=== PATIENT | male | born 1955 | race Caucasian/White ===

== ENCOUNTER 2021-05-18 10:37 | Outpatient (CLI) | payer MEDICARE | END 2021-05-18 10:38 | disposition home or self-care (01) | LOC: CSHWCC 10:37 | PROVIDERS: ATTEND Nurse Practitioner Family | DX: T81.89XD Other complications of procedures, not elsewhere classified, subsequent encounter (principal); I87.2 Venous insufficiency (chronic) (peripheral); E11.622 Type 2 diabetes mellitus with other skin ulcer; E11.319 Type 2 diabetes mellitus with unspecified diabetic retinopathy without macular edema; E11.65 Type 2 diabetes mellitus with hyperglycemia; L97.926 Non-pressure chronic ulcer of unspecified part of left lower leg with bone involvement without evidence of necrosis; I11.9 Hypertensive heart disease without heart failure; E78.5 Hyperlipidemia, unspecified; G90.09 Other idiopathic peripheral autonomic neuropathy; Z89.512 Acquired absence of left leg below knee | CPT/HCPCS: 97605; 99203; G0463 ==

== ENCOUNTER 2021-08-21 18:07 | Inpatient (IN) | payer MEDICARE ==
[2021-08-21 18:22] VITALS: BMI 32.8
[2021-08-21] MEDS ORDERED: Melatonin 3 MG TAB PO PRN (21:41)
[2021-08-21] MEDS ORDERED: Ondansetron PF 4 MG/2 ML Vial IVP PRN (21:41)
[2021-08-21] MEDS ORDERED: HYDROcodone/Acetaminophen 5/325 mg Tablet PO PRN (21:41)
[2021-08-21] MEDS ORDERED: Milk Of Magnesia 30 ML UDCUP PO PRN (21:41)
[2021-08-21] MEDS ORDERED: Ondansetron ODT 4 MG TAB PO PRN (21:41)
[2021-08-21] MEDS ORDERED: Temazepam 15 MG CAP PO PRN (21:56)
[2021-08-21] MEDS ORDERED: Piperacillin/Tazobactam 3.375 GM in Sodium Chloride 0.9% 100 ML IVPB SCH (22:00)
[2021-08-21] MEDS ORDERED: Vancomycin HCl 1 GM in Sodium Chloride 0.9% 250 ML 250 ML IVPB SCH (22:00)
[2021-08-21] MEDS: Sodium Chloride 0.9% 1,000 ML IV SCH (22:24)
[2021-08-21] MEDS: Lantus 1000 UNITS/10 ML VIAL SC SCH (22:51)
[2021-08-22 05:35] LABS: #Eosinphils 0.2 10x3/uL (0.0-0.5); #Monocytes 1.1 10x3/uL (0.0-1.1); %Basophils 0.4 % (0.0-2.0); %Lymphocytes 8.6 % (18.0-47.0); %Monocytes 10.3 % (0.0-10.0); %Neutrophils 78.5 % (40.0-75.0); Hemoglobin 12.5 g/dL (13.5-17.5); Mean Corpuscular HGB CONC 32.3 g/dL (32.0-36.0); Mean Corpuscular Hemoglobin 26.5 pg (27.0-33.0); Mean Corpuscular Volume 82.2 fl (81.2-95.1); Mean Platelet Volume 11.9 fl (7.4-10.4); Platelet Count 168 10x3/uL (150-450); RBC Distribution Width 13.3 % (11.5-14.5); Red Blood Cell (RBC) Count 4.71 10x6/uL (4.32-5.72); White Blood Cell (WBC) Count 10.2 10x3/uL (3.5-10.5)
[2021-08-22] MEDS ORDERED: Piperacillin/Tazobactam 3.375 GM in Sodium Chloride 0.9% 100 ML IVPB SCH (06:00)
[2021-08-22 06:01] LABS: Anion Gap 11 mmol/L (10-20); BUN (Urea Nitrogen) 25 mg/dL (8.4-25.7); Calc. Creatinine Clearance 75 mL/min (70-130); Calcium 9.2 mg/dL (7.8-10.44); Carbon Dioxide 28 mmol/L (23-31); Chloride 103 mmol/L (98-107); Glucose 268 mg/dL (80-115); Magnesium 1.9 mg/dL (1.6-2.6); Potassium 4.4 mmol/L (3.5-5.1); Sodium 138 mmol/L (136-145)
[2021-08-22] MEDS: HumaLOG 300 UNITS/3 ML VIAL SC SCH ×3 (08:42→17:37)
[2021-08-22] MEDS: Metoprolol Tartrate 50 MG TAB PO SCH ×2 (08:43→20:49)
[2021-08-22] MEDS: Losartan 25 MG TAB PO SCH (08:43)
[2021-08-22] MEDS: Furosemide 40 MG TAB PO SCH (08:43)
[2021-08-22] MEDS: Cefepime 2 GM in Sodium Chloride 0.9% 100 ML IVPB SCH ×2 (08:43→20:49)
[2021-08-22] MEDS ORDERED: Enoxaparin Sodium 40 MG/0.4 ML SYRINGE SC SCH ×2 (09:00→12:00)
[2021-08-22] MEDS ORDERED: Clopidogrel Bisulfate 75 MG TAB PO SCH (09:00)
[2021-08-22] MEDS ORDERED: Vancomycin 1.5 GRAM/300 ML BAG 1.5 GM in Premix Bag 1 BAG IVPB SCH (09:00)
[2021-08-22] MEDS ORDERED: Aspirin 81 mg Enteric Coated Tablet PO SCH ×2 (09:00→12:00)
[2021-08-22] MEDS ORDERED: VANCOMYCIN 1.25 GM/250 ML BAG 1.25 GM in Premix Bag 1 BAG IVPB SCH (11:00)
[2021-08-22 15:54] LABS: SARS-CoV-2 PCR by NAA Not Detected (NotDetected)
[2021-08-22] MEDS: Sodium Chloride 0.9% 1,000 ML IV SCH ×2 (17:37→19:45)
[2021-08-22] MEDS: Rosuvastatin 20 MG TAB PO SCH (20:50)
[2021-08-22] MEDS: Lantus 1000 UNITS/10 ML VIAL SC SCH (21:01)
[2021-08-22] MEDS ORDERED: Vancomycin HCl 1 GM in Sodium Chloride 0.9% 250 ML 250 ML IVPB SCH (23:00)
[2021-08-23] MEDS: Sodium Chloride 0.9% 1,000 ML IV SCH ×3 (00:18→15:59)
[2021-08-23 05:43] LABS: #Eosinphils 0.3 10x3/uL (0.0-0.5); #Monocytes 0.7 10x3/uL (0.0-1.1); #Neutrophils 4.9 10x3/uL (1.5-8.4); %Basophils 0.4 % (0.0-2.0); %Eosinophils 4.4 % (0.0-6.0); %Lymphocytes 15.4 % (18.0-47.0); %Monocytes 10.2 % (0.0-10.0); %Neutrophils 69.3 % (40.0-75.0); Hemoglobin 12.5 g/dL (13.5-17.5); Mean Corpuscular HGB CONC 30.9 g/dL (32.0-36.0); Mean Corpuscular Hemoglobin 25.9 pg (27.0-33.0); Mean Corpuscular Volume 83.9 fl (81.2-95.1); Mean Platelet Volume 12.1 fl (7.4-10.4); Platelet Count 173 10x3/uL (150-450); RBC Distribution Width 13.2 % (11.5-14.5); Red Blood Cell (RBC) Count 4.83 10x6/uL (4.32-5.72)
[2021-08-23 05:59] LABS: PTT 26.4 sec (22.0-33.0); Prothrombin Time 10.8 sec (9.5-12.1)
[2021-08-23 06:00] LABS: ALT (SGPT) 31 U/L (8-55); AST (SGOT) 31 U/L (5-34); Albumin 3.4 g/dL (3.4-4.8); Alkaline Phosphatase 78 U/L (40-110); Anion Gap 11 mmol/L (10-20); BUN (Urea Nitrogen) 24 mg/dL (8.4-25.7); Bilirubin, Total 0.3 mg/dL (0.2-1.2); CRP (Inflammatory) 5.25 mg/dL (= or < 0.5); Calc. Creatinine Clearance 82 mL/min (70-130); Calcium 9.1 mg/dL (7.8-10.44); Carbon Dioxide 27 mmol/L (23-31); Cardiac Risk 3.5 (Less than 4.5); Chloride 105 mmol/L (98-107); Cholesterol 92 mg/dl (< 200 Desired); Globulin 3.3 g/dL (2.4-3.5); Glucose 211 mg/dL (80-115); HDL Cholesterol 26 mg/dL (>60 Neg Risk); LDL Cholesterol, Calculated 55 mg/dL; Magnesium 1.8 mg/dL (1.6-2.6); Phosphorus 4.2 mg/dL (2.3-4.7); Potassium 4.4 mmol/L (3.5-5.1); Protein, Total 6.7 g/dL (5.8-8.1); Sodium 139 mmol/L (136-145); Triglycerides 56 mg/dL (Less than 150)
[2021-08-23] MEDS: HumaLOG 300 UNITS/3 ML VIAL SC SCH ×3 (08:36→16:04)
[2021-08-23] MEDS: Losartan 25 MG TAB PO SCH (09:07)
[2021-08-23] MEDS: Cefepime 2 GM in Sodium Chloride 0.9% 100 ML IVPB SCH ×2 (09:07→21:08)
[2021-08-23] MEDS: Furosemide 40 MG TAB PO SCH (09:08)
[2021-08-23] MEDS: Metoprolol Tartrate 50 MG TAB PO SCH ×2 (09:08→21:00)
[2021-08-23] MEDS ORDERED: Vancomycin HCl 1 GM in Sodium Chloride 0.9% 250 ML 250 ML IVPB SCH (11:00)
[2021-08-23 11:41] LABS: Hemoglobin A1c 8.7 % (4.0-6.0)
[2021-08-23] MEDS: Vancomycin HCl 1 GM in Sodium Chloride 0.9% 250 ML 250 ML IVPB SCH (16:04)
[2021-08-23] MEDS: Rosuvastatin 20 MG TAB PO SCH (21:00)
[2021-08-23] MEDS: Lantus 1000 UNITS/10 ML VIAL SC SCH (21:01)
[2021-08-23] MEDS: Temazepam 15 MG CAP PO SCH (21:01)
[2021-08-24] MEDS: Sodium Chloride 0.9% 1,000 ML IV SCH ×3 (03:09→16:31)
[2021-08-24 05:56] LABS: ALT (SGPT) 27 U/L (8-55); AST (SGOT) 21 U/L (5-34); Albumin 3.3 g/dL (3.4-4.8); Alkaline Phosphatase 67 U/L (40-110); Anion Gap 11 mmol/L (10-20); BUN (Urea Nitrogen) 23 mg/dL (8.4-25.7); Bilirubin, Total 0.3 mg/dL (0.2-1.2); Calc. Creatinine Clearance 86 mL/min (70-130); Carbon Dioxide 30 mmol/L (23-31); Chloride 103 mmol/L (98-107); Glucose 171 mg/dL (80-115); Magnesium 1.8 mg/dL (1.6-2.6); Potassium 3.7 mmol/L (3.5-5.1); Protein, Total 6.3 g/dL (5.8-8.1); Sodium 140 mmol/L (136-145)
[2021-08-24 06:01] LABS: #Eosinphils 0.3 10x3/uL (0.0-0.5); #Monocytes 0.7 10x3/uL (0.0-1.1); #Neutrophils 4.4 10x3/uL (1.5-8.4); %Basophils 0.4 % (0.0-2.0); %Eosinophils 4.4 % (0.0-6.0); %Lymphocytes 22.3 % (18.0-47.0); %Monocytes 10.4 % (0.0-10.0); %Neutrophils 62.2 % (40.0-75.0); Hemoglobin 11.8 g/dL (13.5-17.5); Mean Corpuscular HGB CONC 31.6 g/dL (32.0-36.0); Mean Corpuscular Hemoglobin 26.3 pg (27.0-33.0); Mean Corpuscular Volume 83.1 fl (81.2-95.1); Mean Platelet Volume 11.9 fl (7.4-10.4); Platelet Count 179 10x3/uL (150-450); RBC Distribution Width 13.1 % (11.5-14.5); Red Blood Cell (RBC) Count 4.49 10x6/uL (4.32-5.72)
[2021-08-24] MEDS: Furosemide 40 MG TAB PO SCH (08:17)
[2021-08-24] MEDS: Losartan 25 MG TAB PO SCH (08:17)
[2021-08-24] MEDS: Enoxaparin Sodium 40 MG/0.4 ML SYRINGE SC SCH (08:17)
[2021-08-24] MEDS: Cefepime 2 GM in Sodium Chloride 0.9% 100 ML IVPB SCH ×2 (08:18→20:57)
[2021-08-24] MEDS: Clopidogrel Bisulfate 75 MG TAB PO SCH (08:18)
[2021-08-24] MEDS: Aspirin 81 mg Enteric Coated Tablet PO SCH (08:18)
[2021-08-24] MEDS: Metoprolol Tartrate 50 MG TAB PO SCH ×2 (08:18→20:58)
[2021-08-24] MEDS: HumaLOG 300 UNITS/3 ML VIAL SC SCH ×3 (08:23→18:49)
[2021-08-24] MEDS: Vancomycin HCl 1 GM in Sodium Chloride 0.9% 250 ML 250 ML IVPB SCH (12:01)
[2021-08-24] MEDS: Rosuvastatin 20 MG TAB PO SCH (20:58)
[2021-08-24] MEDS: Temazepam 15 MG CAP PO SCH (20:58)
[2021-08-24] MEDS: Lantus 1000 UNITS/10 ML VIAL SC SCH (21:00)
[2021-08-25 04:36] LABS: Vancomycin, Trough 12.4 ug/mL
[2021-08-25 04:41] LABS: #Eosinphils 0.3 10x3/uL (0.0-0.5); #Monocytes 0.7 10x3/uL (0.0-1.1); #Neutrophils 4.1 10x3/uL (1.5-8.4); %Basophils 0.6 % (0.0-2.0); %Eosinophils 4.7 % (0.0-6.0); %Lymphocytes 24.4 % (18.0-47.0); %Monocytes 9.7 % (0.0-10.0); %Neutrophils 60.5 % (40.0-75.0); ALT (SGPT) 30 U/L (8-55); AST (SGOT) 24 U/L (5-34); Albumin 3.4 g/dL (3.4-4.8); Alkaline Phosphatase 73 U/L (40-110); Anion Gap 13 mmol/L (10-20); BUN (Urea Nitrogen) 21 mg/dL (8.4-25.7); Bilirubin, Total 0.2 mg/dL (0.2-1.2); Calc. Creatinine Clearance 96 mL/min (70-130); Calcium 9.2 mg/dL (7.8-10.44); Carbon Dioxide 27 mmol/L (23-31); Chloride 105 mmol/L (98-107); Globulin 3.1 g/dL (2.4-3.5); Glucose 161 mg/dL (80-115); Hemoglobin 12.8 g/dL (13.5-17.5); Magnesium 1.9 mg/dL (1.6-2.6); Mean Corpuscular HGB CONC 32.6 g/dL (32.0-36.0); Mean Corpuscular Hemoglobin 26.3 pg (27.0-33.0); Mean Corpuscular Volume 80.7 fl (81.2-95.1); Mean Platelet Volume 11.8 fl (7.4-10.4); Phosphorus 4.3 mg/dL (2.3-4.7); Platelet Count 182 10x3/uL (150-450); Potassium 3.6 mmol/L (3.5-5.1); Protein, Total 6.5 g/dL (5.8-8.1); RBC Distribution Width 13.1 % (11.5-14.5); Red Blood Cell (RBC) Count 4.87 10x6/uL (4.32-5.72); Sodium 141 mmol/L (136-145); White Blood Cell (WBC) Count 6.8 10x3/uL (3.5-10.5)
[2021-08-25] MEDS: Vancomycin HCl 1 GM in Sodium Chloride 0.9% 250 ML 250 ML IVPB SCH ×2 (04:50→17:19)
[2021-08-25] MEDS: Enoxaparin Sodium 40 MG/0.4 ML SYRINGE SC SCH (08:51)
[2021-08-25] MEDS: Cefepime 2 GM in Sodium Chloride 0.9% 100 ML IVPB SCH ×2 (08:51→21:19)
[2021-08-25] MEDS: Furosemide 40 MG TAB PO SCH (08:52)
[2021-08-25] MEDS: Clopidogrel Bisulfate 75 MG TAB PO SCH (08:52)
[2021-08-25] MEDS: Metoprolol Tartrate 50 MG TAB PO SCH ×2 (08:52→21:20)
[2021-08-25] MEDS: Aspirin 81 mg Enteric Coated Tablet PO SCH (08:52)
[2021-08-25] MEDS: Losartan 25 MG TAB PO SCH (08:52)
[2021-08-25] MEDS: HumaLOG 300 UNITS/3 ML VIAL SC SCH ×3 (08:52→17:18)
[2021-08-25] MEDS: Temazepam 15 MG CAP PO SCH (21:20)
[2021-08-25] MEDS: Rosuvastatin 20 MG TAB PO SCH (21:20)
[2021-08-25] MEDS: Lantus 1000 UNITS/10 ML VIAL SC SCH (21:28)
[2021-08-26 04:15] LABS: #Basophils 0.1 10x3/uL (0.0-0.2); #Eosinphils 0.3 10x3/uL (0.0-0.5); #Monocytes 0.8 10x3/uL (0.0-1.1); #Neutrophils 5.4 10x3/uL (1.5-8.4); %Basophils 0.7 % (0.0-2.0); %Eosinophils 3.9 % (0.0-6.0); %Lymphocytes 21.1 % (18.0-47.0); %Neutrophils 65.1 % (40.0-75.0); Hemoglobin 12.8 g/dL (13.5-17.5); Mean Corpuscular HGB CONC 31.4 g/dL (32.0-36.0); Mean Corpuscular Hemoglobin 25.7 pg (27.0-33.0); Mean Corpuscular Volume 81.7 fl (81.2-95.1); Mean Platelet Volume 11.4 fl (7.4-10.4); Platelet Count 210 10x3/uL (150-450); RBC Distribution Width 12.9 % (11.5-14.5); Red Blood Cell (RBC) Count 4.98 10x6/uL (4.32-5.72); White Blood Cell (WBC) Count 8.3 10x3/uL (3.5-10.5)
[2021-08-26 04:30] LABS: ALT (SGPT) 34 U/L (8-55); AST (SGOT) 23 U/L (5-34); Albumin 3.6 g/dL (3.4-4.8); Alkaline Phosphatase 73 U/L (40-110); Anion Gap 11 mmol/L (10-20); BUN (Urea Nitrogen) 19 mg/dL (8.4-25.7); Bilirubin, Total 0.3 mg/dL (0.2-1.2); Calc. Creatinine Clearance 88 mL/min (70-130); Calcium 9.4 mg/dL (7.8-10.44); Carbon Dioxide 31 mmol/L (23-31); Chloride 103 mmol/L (98-107); Globulin 3.3 g/dL (2.4-3.5); Glucose 99 mg/dL (80-115); Potassium 3.6 mmol/L (3.5-5.1); Protein, Total 6.9 g/dL (5.8-8.1); Sodium 141 mmol/L (136-145)
[2021-08-26] MEDS: Vancomycin HCl 1 GM in Sodium Chloride 0.9% 250 ML 250 ML IVPB SCH ×2 (05:12→18:12)
[2021-08-26] MEDS: Losartan 25 MG TAB PO SCH (09:04)
[2021-08-26] MEDS: Aspirin 81 mg Enteric Coated Tablet PO SCH (09:05)
[2021-08-26] MEDS: Cefepime 2 GM in Sodium Chloride 0.9% 100 ML IVPB SCH ×2 (09:05→20:49)
[2021-08-26] MEDS: Clopidogrel Bisulfate 75 MG TAB PO SCH (09:05)
[2021-08-26] MEDS: Metoprolol Tartrate 50 MG TAB PO SCH ×2 (09:05→20:49)
[2021-08-26] MEDS: Furosemide 40 MG TAB PO SCH (09:05)
[2021-08-26] MEDS: HumaLOG 300 UNITS/3 ML VIAL SC SCH ×3 (09:06→18:14)
[2021-08-26] MEDS: Enoxaparin Sodium 40 MG/0.4 ML SYRINGE SC SCH (09:06)
[2021-08-26 16:15] LABS: Vancomycin, Trough 19.1 ug/mL
[2021-08-26] MEDS: Temazepam 15 MG CAP PO SCH (20:49)
[2021-08-26] MEDS: Rosuvastatin 20 MG TAB PO SCH (20:49)
[2021-08-26] MEDS: VANCOMYCIN 1.25 GM/250 ML BAG 1.25 GM in Premix Bag 1 BAG IVPB SCH (20:49)
[2021-08-26] MEDS ORDERED: Lantus 1000 UNITS/10 ML VIAL SC SCH (21:00)
[2021-08-27 06:08] LABS: ALT (SGPT) 43 U/L (8-55); AST (SGOT) 32 U/L (5-34); Albumin 3.6 g/dL (3.4-4.8); Alkaline Phosphatase 85 U/L (40-110); Anion Gap 12 mmol/L (10-20); BUN (Urea Nitrogen) 24 mg/dL (8.4-25.7); Bilirubin, Total 0.3 mg/dL (0.2-1.2); Calc. Creatinine Clearance 89 mL/min (70-130); Calcium 9.4 mg/dL (7.8-10.44); Carbon Dioxide 26 mmol/L (23-31); Chloride 104 mmol/L (98-107); Globulin 3.4 g/dL (2.4-3.5); Glucose 219 mg/dL (80-115); Magnesium 2.2 mg/dL (1.6-2.6); Phosphorus 3.4 mg/dL (2.3-4.7); Potassium 3.7 mmol/L (3.5-5.1); Sodium 138 mmol/L (136-145)
[2021-08-27 06:16] LABS: #Eosinphils 0.2 10x3/uL (0.0-0.5); #Monocytes 0.8 10x3/uL (0.0-1.1); #Neutrophils 5.3 10x3/uL (1.5-8.4); %Basophils 0.5 % (0.0-2.0); %Eosinophils 2.9 % (0.0-6.0); %Lymphocytes 18.4 % (18.0-47.0); %Monocytes 9.9 % (0.0-10.0); Hemoglobin 13.3 g/dL (13.5-17.5); Mean Corpuscular HGB CONC 31.4 g/dL (32.0-36.0); Mean Corpuscular Volume 82.6 fl (81.2-95.1); Mean Platelet Volume 11.3 fl (7.4-10.4); Platelet Count 203 10x3/uL (150-450); RBC Distribution Width 12.9 % (11.5-14.5); Red Blood Cell (RBC) Count 5.12 10x6/uL (4.32-5.72); White Blood Cell (WBC) Count 7.8 10x3/uL (3.5-10.5)
[2021-08-27] MEDS: Clopidogrel Bisulfate 75 MG TAB PO SCH (08:59)
[2021-08-27] MEDS: Aspirin 81 mg Enteric Coated Tablet PO SCH (09:00)
[2021-08-27] MEDS: Cefepime 2 GM in Sodium Chloride 0.9% 100 ML IVPB SCH ×2 (09:00→21:27)
[2021-08-27] MEDS: Metoprolol Tartrate 50 MG TAB PO SCH ×2 (09:00→21:27)
[2021-08-27] MEDS: HumaLOG 300 UNITS/3 ML VIAL SC SCH ×3 (09:00→16:39)
[2021-08-27] MEDS: Enoxaparin Sodium 40 MG/0.4 ML SYRINGE SC SCH (09:00)
[2021-08-27] MEDS: Furosemide 40 MG TAB PO SCH (09:00)
[2021-08-27] MEDS: Losartan 25 MG TAB PO SCH (09:00)
[2021-08-27] MEDS: VANCOMYCIN 1.25 GM/250 ML BAG 1.25 GM in Premix Bag 1 BAG IVPB SCH (15:57)
[2021-08-27] MEDS ORDERED: Dextrose 50% Abboject 50 ML SYRINGE SLOW IVP PRN (18:37)
[2021-08-27] MEDS ORDERED: Dextrose 5% in Water 1,000 ML IV PRN (18:37)
[2021-08-27] MEDS ORDERED: Lantus 1000 UNITS/10 ML VIAL SC SCH (21:00)
[2021-08-27] MEDS: Temazepam 15 MG CAP PO SCH (21:27)
[2021-08-27] MEDS: Rosuvastatin 20 MG TAB PO SCH (21:27)
[2021-08-28 04:14] LABS: #Basophils 0.1 10x3/uL (0.0-0.2); #Eosinphils 0.3 10x3/uL (0.0-0.5); #Monocytes 0.7 10x3/uL (0.0-1.1); #Neutrophils 5.1 10x3/uL (1.5-8.4); %Basophils 0.6 % (0.0-2.0); %Lymphocytes 25.9 % (18.0-47.0); %Monocytes 8.7 % (0.0-10.0); %Neutrophils 61.6 % (40.0-75.0); Hemoglobin 12.8 g/dL (13.5-17.5); Mean Corpuscular HGB CONC 31.3 g/dL (32.0-36.0); Mean Corpuscular Hemoglobin 25.9 pg (27.0-33.0); Mean Corpuscular Volume 82.6 fl (81.2-95.1); Platelet Count 218 10x3/uL (150-450); Red Blood Cell (RBC) Count 4.95 10x6/uL (4.32-5.72); White Blood Cell (WBC) Count 8.2 10x3/uL (3.5-10.5)
[2021-08-28 04:21] LABS: ALT (SGPT) 44 U/L (8-55); AST (SGOT) 30 U/L (5-34); Albumin 3.6 g/dL (3.4-4.8); Alkaline Phosphatase 73 U/L (40-110); Anion Gap 10 mmol/L (10-20); BUN (Urea Nitrogen) 25 mg/dL (8.4-25.7); Bilirubin, Total 0.3 mg/dL (0.2-1.2); Calc. Creatinine Clearance 90 mL/min (70-130); Calcium 9.3 mg/dL (7.8-10.44); Carbon Dioxide 28 mmol/L (23-31); Chloride 103 mmol/L (98-107); Globulin 3.3 g/dL (2.4-3.5); Glucose 220 mg/dL (80-115); Magnesium 2.1 mg/dL (1.6-2.6); Phosphorus 3.5 mg/dL (2.3-4.7); Potassium 4.1 mmol/L (3.5-5.1); Protein, Total 6.9 g/dL (5.8-8.1); Sodium 137 mmol/L (136-145)
[2021-08-28] MEDS: Cefepime 2 GM in Sodium Chloride 0.9% 100 ML IVPB SCH ×2 (10:20→20:17)
[2021-08-28] MEDS: Enoxaparin Sodium 40 MG/0.4 ML SYRINGE SC SCH (10:21)
[2021-08-28] MEDS: Losartan 25 MG TAB PO SCH (10:22)
[2021-08-28] MEDS: Aspirin 81 mg Enteric Coated Tablet PO SCH (10:23)
[2021-08-28] MEDS: Furosemide 40 MG TAB PO SCH (10:23)
[2021-08-28] MEDS: Metoprolol Tartrate 50 MG TAB PO SCH ×2 (10:23→20:18)
[2021-08-28] MEDS: HumaLOG 300 UNITS/3 ML VIAL SC SCH ×3 (10:39→17:04)
[2021-08-28] MEDS: Clopidogrel Bisulfate 75 MG TAB PO SCH (10:40)
[2021-08-28] MEDS: VANCOMYCIN 1.25 GM/250 ML BAG 1.25 GM in Premix Bag 1 BAG IVPB SCH (10:43)
[2021-08-28] MEDS ORDERED: Lantus 1000 UNITS/10 ML VIAL SC SCH ×2 (13:35→21:00)
[2021-08-28] MEDS: metFORMIN 500 MG TAB PO SCH (17:05)
[2021-08-28] MEDS: Rosuvastatin 20 MG TAB PO SCH (20:18)
[2021-08-28] MEDS: Temazepam 15 MG CAP PO SCH (20:18)
[2021-08-29 02:21] LABS: #Basophils 0.1 10x3/uL (0.0-0.2); #Eosinphils 0.3 10x3/uL (0.0-0.5); #Monocytes 0.7 10x3/uL (0.0-1.1); %Basophils 0.7 % (0.0-2.0); %Eosinophils 3.5 % (0.0-6.0); %Lymphocytes 22.3 % (18.0-47.0); %Monocytes 7.8 % (0.0-10.0); %Neutrophils 65.4 % (40.0-75.0); Hemoglobin 13.3 g/dL (13.5-17.5); Mean Corpuscular HGB CONC 32.2 g/dL (32.0-36.0); Mean Corpuscular Hemoglobin 26.3 pg (27.0-33.0); Mean Corpuscular Volume 81.6 fl (81.2-95.1); Mean Platelet Volume 11.5 fl (7.4-10.4); Platelet Count 211 10x3/uL (150-450); Red Blood Cell (RBC) Count 5.06 10x6/uL (4.32-5.72); White Blood Cell (WBC) Count 9.1 10x3/uL (3.5-10.5)
[2021-08-29 03:07] LABS: ALT (SGPT) 58 U/L (8-55); AST (SGOT) 41 U/L (5-34); Albumin 3.7 g/dL (3.4-4.8); Alkaline Phosphatase 79 U/L (40-110); Anion Gap 13 mmol/L (10-20); BUN (Urea Nitrogen) 25 mg/dL (8.4-25.7); Bilirubin, Total 0.3 mg/dL (0.2-1.2); Calc. Creatinine Clearance 95 mL/min (70-130); Calcium 9.1 mg/dL (7.8-10.44); Carbon Dioxide 26 mmol/L (23-31); Chloride 103 mmol/L (98-107); Globulin 3.2 g/dL (2.4-3.5); Glucose 228 mg/dL (80-115); Phosphorus 3.1 mg/dL (2.3-4.7); Potassium 3.8 mmol/L (3.5-5.1); Protein, Total 6.9 g/dL (5.8-8.1); Sodium 138 mmol/L (136-145)
[2021-08-29] MEDS: VANCOMYCIN 1.25 GM/250 ML BAG 1.25 GM in Premix Bag 1 BAG IVPB SCH ×2 (03:53→23:22)
[2021-08-29] MEDS: HumaLOG 300 UNITS/3 ML VIAL SC SCH ×2 (09:41→12:25)
[2021-08-29] MEDS: metFORMIN 500 MG TAB PO SCH ×2 (09:42→17:38)
[2021-08-29] MEDS: Losartan 25 MG TAB PO SCH (09:43)
[2021-08-29] MEDS: Metoprolol Tartrate 50 MG TAB PO SCH ×2 (09:43→21:03)
[2021-08-29] MEDS: Enoxaparin Sodium 40 MG/0.4 ML SYRINGE SC SCH (09:43)
[2021-08-29] MEDS: Furosemide 40 MG TAB PO SCH (09:43)
[2021-08-29] MEDS: Cefepime 2 GM in Sodium Chloride 0.9% 100 ML IVPB SCH ×2 (09:44→21:03)
[2021-08-29] MEDS ORDERED: Dextrose 5% in Water 1,000 ML IV PRN (14:49)
[2021-08-29] MEDS ORDERED: Dextrose 50% Abboject 50 ML SYRINGE SLOW IVP PRN (14:49)
[2021-08-29] MEDS: hydrALAZINE 20 MG/ML VIAL SLOW IVP PRN ×2 (16:34→23:34)
[2021-08-29] MEDS ORDERED: Lantus 1000 UNITS/10 ML VIAL SC SCH (21:00)
[2021-08-29] MEDS: Rosuvastatin 20 MG TAB PO SCH (21:03)
[2021-08-29] MEDS: Temazepam 15 MG CAP PO SCH (21:03)
[2021-08-30] MEDS: Cefepime 2 GM in Sodium Chloride 0.9% 100 ML IVPB SCH ×2 (09:43→21:41)
[2021-08-30] MEDS: Furosemide 40 MG TAB PO SCH (09:44)
[2021-08-30] MEDS: Metoprolol Tartrate 50 MG TAB PO SCH ×2 (09:44→21:42)
[2021-08-30] MEDS: Enoxaparin Sodium 40 MG/0.4 ML SYRINGE SC SCH (09:44)
[2021-08-30] MEDS: metFORMIN 500 MG TAB PO SCH ×2 (09:45→18:45)
[2021-08-30] MEDS: Losartan 25 MG TAB PO SCH (09:46)
[2021-08-30] MEDS: HumaLOG 300 UNITS/3 ML VIAL SC PRN ×3 (10:16→21:56)
[2021-08-30] MEDS: VANCOMYCIN 1.25 GM/250 ML BAG 1.25 GM in Premix Bag 1 BAG IVPB SCH (15:45)
[2021-08-30 16:03] LABS: SARS-CoV-2 PCR by NAA Not Detected (NotDetected)
[2021-08-30] MEDS: Lantus 1000 UNITS/10 ML VIAL SC SCH ×2 (18:45→21:56)
[2021-08-30] MEDS: Temazepam 15 MG CAP PO SCH (21:41)
[2021-08-30] MEDS: Rosuvastatin 20 MG TAB PO SCH (21:42)
[2021-08-31 06:08] LABS: Anion Gap 12 mmol/L (10-20); BUN (Urea Nitrogen) 34 mg/dL (8.4-25.7); Calc. Creatinine Clearance 75 mL/min (70-130); Calcium 9.2 mg/dL (7.8-10.44); Carbon Dioxide 26 mmol/L (23-31); Chloride 107 mmol/L (98-107); Glucose 151 mg/dL (80-115); Magnesium 1.7 mg/dL (1.6-2.6); Phosphorus 3.6 mg/dL (2.3-4.7); Potassium 3.9 mmol/L (3.5-5.1); Sodium 141 mmol/L (136-145)
[2021-08-31 08:07] LABS: Vancomycin, Trough 21.7 ug/mL
[2021-08-31] MEDS ORDERED: Vancomycin HCl 1 GM in Sodium Chloride 0.9% 250 ML 250 ML IVPB SCH (09:00)
[2021-08-31] MEDS: metFORMIN 500 MG TAB PO SCH ×2 (09:33→17:34)
[2021-08-31] MEDS: Metoprolol Tartrate 50 MG TAB PO SCH ×2 (09:33→20:07)
[2021-08-31] MEDS: Furosemide 40 MG TAB PO SCH (09:33)
[2021-08-31] MEDS: Losartan 25 MG TAB PO SCH (09:33)
[2021-08-31] MEDS: Enoxaparin Sodium 40 MG/0.4 ML SYRINGE SC SCH (09:34)
[2021-08-31] MEDS: Cefepime 2 GM in Sodium Chloride 0.9% 100 ML IVPB SCH ×2 (09:34→20:05)
[2021-08-31] MEDS: Temazepam 15 MG CAP PO SCH (20:06)
[2021-08-31] MEDS: Rosuvastatin 20 MG TAB PO SCH (20:06)
[2021-08-31] MEDS: HumaLOG 300 UNITS/3 ML VIAL SC PRN (20:27)
[2021-08-31] MEDS ORDERED: Lantus 1000 UNITS/10 ML VIAL SC SCH (21:00)
[2021-08-31] MEDS: Lactated Ringer's 1,000 ML IV SCH (21:57)
[2021-09-01] MEDS: Lactated Ringer's 1,000 ML IV SCH ×2 (05:00→10:41)
[2021-09-01 05:21] LABS: #Basophils 0.1 10x3/uL (0.0-0.2); #Eosinphils 0.2 10x3/uL (0.0-0.5); #Monocytes 0.6 10x3/uL (0.0-1.1); #Neutrophils 7.8 10x3/uL (1.5-8.4); %Basophils 0.5 % (0.0-2.0); %Eosinophils 1.7 % (0.0-6.0); %Lymphocytes 16.3 % (18.0-47.0); %Monocytes 6.1 % (0.0-10.0); %Neutrophils 75.2 % (40.0-75.0); Hemoglobin 12.6 g/dL (13.5-17.5); Mean Corpuscular HGB CONC 31.6 g/dL (32.0-36.0); Mean Corpuscular Hemoglobin 26.4 pg (27.0-33.0); Mean Corpuscular Volume 83.5 fl (81.2-95.1); Mean Platelet Volume 11.8 fl (7.4-10.4); Platelet Count 201 10x3/uL (150-450); RBC Distribution Width 13.2 % (11.5-14.5); Red Blood Cell (RBC) Count 4.78 10x6/uL (4.32-5.72); White Blood Cell (WBC) Count 10.4 10x3/uL (3.5-10.5)
[2021-09-01 05:39] LABS: Anion Gap 12 mmol/L (10-20); BUN (Urea Nitrogen) 39 mg/dL (8.4-25.7); Calc. Creatinine Clearance 79 mL/min (70-130); Carbon Dioxide 25 mmol/L (23-31); Chloride 106 mmol/L (98-107); Glucose 170 mg/dL (80-115); Potassium 4.2 mmol/L (3.5-5.1); Sodium 139 mmol/L (136-145)
[2021-09-01] MEDS: Furosemide 40 MG TAB PO SCH (09:16)
[2021-09-01] MEDS: Losartan 25 MG TAB PO SCH (09:16)
[2021-09-01] MEDS: Metoprolol Tartrate 50 MG TAB PO SCH (09:16)
[2021-09-01] MEDS: Cefepime 2 GM in Sodium Chloride 0.9% 100 ML IVPB SCH (09:17)
[2021-09-01 16:21] VITALS: BP 141/76; TEMP 98.7
== END 2021-09-01 16:25 | disposition home or self-care (01) | DRG 565 ==
LOC: CSHTELE 18:07
PROVIDERS: ADMIT Internal Medicine; ATTEND Family Medicine
DX: T87.89 Other complications of amputation stump (principal); M84.475K Pathological fracture, left foot, subsequent encounter for fracture with nonunion; M86.172 Other acute osteomyelitis, left ankle and foot; N17.9 Acute kidney failure, unspecified; I50.22 Chronic systolic (congestive) heart failure; L02.612 Cutaneous abscess of left foot; E11.319 Type 2 diabetes mellitus with unspecified diabetic retinopathy without macular edema; E11.51 Type 2 diabetes mellitus with diabetic peripheral angiopathy without gangrene; E78.5 Hyperlipidemia, unspecified; I25.10 Atherosclerotic heart disease of native coronary artery without angina pectoris; E11.628 Type 2 diabetes mellitus with other skin complications; E11.69 Type 2 diabetes mellitus with other specified complication; E11.42 Type 2 diabetes mellitus with diabetic polyneuropathy; Y83.8 Other surgical procedures as the cause of abnormal reaction of the patient, or of later complication, without mention of misadventure at the time of the procedure; I11.0 Hypertensive heart disease with heart failure; L03.032 Cellulitis of left toe; R19.7 Diarrhea, unspecified; G25.81 Restless legs syndrome; Z20.822 Contact with and (suspected) exposure to COVID-19; Z89.412 Acquired absence of left great toe; Z79.82 Long term (current) use of aspirin; Z79.899 Other long term (current) drug therapy; Z79.4 Long term (current) use of insulin; Z95.1 Presence of aortocoronary bypass graft; Z86.73 Personal history of transient ischemic attack (TIA), and cerebral infarction without residual deficits
CPT/HCPCS: 36415; 36416; 80048; 80053; 80061; 80202; 83036; 83735; 84100; 85025; 85610; 85652; 85730; 86140; 86850; 86900; 86901; 87040; 93005; 93010; 93306; 93923; J0360; J0692; J1650; J1815; J2405; J2543; J3370; J3490; J7050; J7120; U0003; U0005

== ENCOUNTER 2021-10-21 09:13 | Outpatient (CLI) | payer MEDICARE | END 2021-10-21 09:14 | disposition home or self-care (01) | LOC: CSHMRI 09:13 | PROVIDERS: ATTEND Surgery | DX: M86.372 Chronic multifocal osteomyelitis, left ankle and foot (principal); R93.7 Abnormal findings on diagnostic imaging of other parts of musculoskeletal system | CPT/HCPCS: 82565 ==